=== PATIENT | female | born 1960 | race American Indian/Alaskan Native ===

== ENCOUNTER 2016-08-17 16:13 | Outpatient (CLI) | payer OTHER ==
--- NOTE | 2016-08-17 16:42 | Mammography Report ---
RIGHT DIGITAL DIAGNOSTIC MAMMOGRAM : 08/17/16 00:00:00 CLINICAL: Immediately status post aspiration/biopsy. COMPARISON:A recent [facility] mammogram. FINDINGS: The previously described circumscribed density in the outer breast has resolved. No mass, suspicious architectural distortion or suspicious calcifications. IMPRESSION: Resolution of mammographic mass status post aspiration/biopsy.Recommend routine mammographic screening. BI-RADS CATEGORY: 1 - - Negative COMMENT: Patient follow-up letters are generated by our [employer] application.
== END 2016-08-17 16:14 | disposition home or self-care (01) ==
LOC: SPVIMAG 16:13
PROVIDERS: ATTEND Surgery
DX: R92.8 Other abnormal and inconclusive findings on diagnostic imaging of breast (principal)
CPT/HCPCS: G0206-RT

== ENCOUNTER 2016-08-18 15:38 | Outpatient (CLI) | payer OTHER | END 2016-08-18 15:39 | disposition home or self-care (01) | LOC: LABHHL 15:38 | PROVIDERS: ATTEND Surgery | DX: N63 Unspecified lump in breast (principal) | CPT/HCPCS: 88305 ==

== ENCOUNTER 2019-08-20 16:34 | Inpatient (IN) | payer OTHER ==
[2019-08-20] MEDS ORDERED: ASPIRIN 325 MG TAB PO ONE (17:39)
[2019-08-20 18:08] LABS: Basophils % (Auto) 0.5 % (0.0-1.8); Eosinophils % (Auto) 0.8 % (0.0-4.3); Hematocrit 37.6 % (30.3-42.9); Hemoglobin 12.5 gm/dl (10.1-14.3); Lymphocytes # (Auto) 1.8 K/mm3 (1.2-5.4); Lymphocytes % (Auto) 37.1 % (13.4-35.0); Mean Corpuscular HGB Conc 33 % (30-34); Mean Corpuscular Volume 87 fl (79-97); Monocytes # (Auto) 0.4 K/mm3 (0.0-0.8); Platelet Count 381 K/mm3 (140-440); Red Blood Count 4.32 M/mm3 (3.65-5.03); Red Cell Distribution Width 13.6 % (13.2-15.2)
[2019-08-20 18:25] LABS: BUN/Creatinine Ratio 26; Blood Urea Nitrogen 13 mg/dL (7-17); Calcium 9.7 mg/dL (8.4-10.2); Hemolysis Index 3
--- NOTE | 2019-08-20 18:29 | XRay Report ---
CHEST 1 VIEW INDICATION: Chest Pain COMPARISON: 06/28/2014 FINDINGS: Support devices: None Heart: Normal and unchanged Lungs/Pleura: No acute pulmonary or pleural findings. IMPRESSION: 1. No acute disease. Signer Name: Balbir Kong MD Signed: 08/20/2019 6:25 PM Workstation Name: [id number]
[2019-08-20] MEDS ORDERED: KETOROLAC 30 MG/1 ML INJ IV ONE (22:15)
[2019-08-20] MEDS ORDERED: ONDANSETRON 4 MG/2 ML INJ IV ONE (22:15)
--- NOTE | 2019-08-21 00:13 | Cat Scan Report ---
CT OF THE ABDOMEN AND PELVIS WITH INTRAVENOUS CONTRAST INDICATION / CLINICAL INFORMATION: Right lower quadrant pain. TECHNIQUE: The patient received 100 cc Omnipaque [address] scans at this location are performed using CT dose reduction for ALARA by means of automated exposure control. COMPARISON: None available. FINDINGS: ABDOMEN: There is an inflamed diverticulum involving the ascending colon medially, best seen on axial image #74. There are a couple of extraluminal gas bubbles in the pericolonic fat. There is also mild soft tissue stranding in the pericolonic fat. I see no evidence of abscess or obstruction. There are a couple of tiny hepatic cysts. The gallbladder, bile ducts, pancreas, spleen and adrenal g lands are normal. There are bilateral simple renal cysts. No adenopathy is seen. The lung bases are c lear. PELVIS: The distal ureters and urinary bladder are normal. The uterus and adnexal regions are unremar kable. A normal appendix is present. There are multiple left colonic diverticula. No abnormal mass or fluid collection is seen. I do not identify a hernia. There is moderate lower lumbar spondylosis. IMPRESSION: Acute diverticulitis involving the right colon. There is evidence of contained perforatio n without abscess. Signer Name: Abundio Green MD Signed: 08/21/2019 12:09 AM Workstation Name: [employer]
--- NOTE | 2019-08-21 00:52 | Cat Scan Report ---
CT ANGIOGRAPHY OF THE CHEST WITH INTRAVENOUS CONTRAST AND MULTIPLANAR MIP RECONSTRUCTIONS INDICATION / CLINICAL INFORMATION: Chest pain and elevated d-dimer. TECHNIQUE: Axial CT images were obtained after injection of 100 cc Omnipaque 350 IV contrast using CTA protocol. 3 plane MIP / 3D reconstructions were produced. All CT scans at this location are performed using CT dose reduction for ALARA by means of automated exposure control. COMPARISON: None available. FINDINGS: There is good opacification of the pulmonary arterial system bilaterally without intraluminal filling defect to suggest acute PTE. The thoracic aorta is normal in caliber without dissection. No coronary artery calcification is seen. The tracheobronchial tree is normal. There is minimal bibasilar subsegmental atelectasis. The lungs a re otherwise clear. There is no evidence of adenopathy or effusion. There is a small simple cyst in the left mid kidney posteriorly. There are also tiny cysts in the rig ht kidney and dome of the liver. The remainder of the visualized upper abdomen is unremarkable. There is mild spondylosis without acute osseous abnormality. IMPRESSION: No evidence of acute PTE. Signer Name: Abundio Green MD Signed: 08/21/2019 12:48 AM Workstation Name: [id number]
--- NOTE | 2019-08-21 01:34 | Emergency Department Report ---
ED Abdominal Pain HPI - General Chief Complaint: Chest Pain Stated Complaint: CHEST PAIN Source: patient Mode of arrival: Ambulatory Limitations: No Limitations - History of Present Illness Initial Comments: Patient is a 59-year-old -[place] female with a history of hypertension who presents to the ED with complaint of acute onset persistent left-sided chest pain for the last 2 days. Patient describes chest pain as sharp and constant. Patient also complains of diffuse lower abdominal pain for the last 1 week with nausea and vomiting and diarrhea. Patient states that the abdominal pain radiates from the lower abdomen to the mid abdominal area, under the pain is sharp and constant. Patient denies dysuria, urinary frequency and urgency, fever, chills, cough, shortness of breath, dizziness, headache, vaginal bleeding, vaginal discharge, low back pain, traumatic injury or fall. MD Complaint: abdominal pain, other (chest wall pain; nausea, vomiting and diarrhea) -: Sudden, week(s) (1) Location: diffuse Radiation: chest Migration to: no migration Severity: severe Severity scale (0 -10): 8 Quality: cramping, sharp Consistency: intermittent Improves With: nothing Worsens With: nothing Associated Symptoms: denies other symptoms, nausea, vomiting, diarrhea, a norexia. denies: fever, chills, hematemesis, hematochezia, melena, syncope - Related Data Home Medications Medication Instructions Recorded Confirmed Last Taken amLODIPine 5 mg PO DAILY 06/12/14 03/10/16 06/25/14 10:00 5 mg Previous Rx's Medication Instructions Recorded Last Taken Type Dicyclomine [Bentyl] 20 mg PO QID PRN #20 tablet 03/10/16 Unknown Rx Allergies Allergy/AdvReac Type Severity Reaction Status Date / Time No Known Allergies Allergy Verified 08/20/19 16:36 ED Review of Systems ROS: Stated complaint: CHEST PAIN Other details as noted in HPI Constitutional: denies: chills, fever Eyes: denies: eye pain, eye discharge, vision change ENT: denies: ear pain, throat pain Respiratory: denies: cough, shortness of breath, wheezing Cardiovascular: chest pain (left chest wall pain). denies: palpitations Endocrine: no symptoms reported Gastrointestinal: abdominal pain, nausea, vomiting, diarrhea Genitourinary: denies: urgency, dysuria, discharge Musculoskeletal: denies: back pain, joint swelling, arthralgia Skin: denies: rash, lesions Neurological: denies: headache, weakness, paresthesias Psychiatric: denies: anxiety, depression Hematological/Lymphatic: denies: easy bleeding, easy bruising ED Past Medical Hx - Past Medical History Previous Medical History?: Yes Hx Hypertension: Yes (2007; [facility]) Hx Heart Attack/AMI: No Hx Congestive Heart Failure: No Hx Diabetes: No Hx Liver Disease: No Hx Renal Disease: No Hx Arthritis: Yes (left knee) Hx Seizures: No Hx Asthma: No Hx COPD: No Hx HIV: No - Surgical History Past Surgical History?: Yes Additional Surgical History: left knee replacement (jun 2014), Tubal Ligation - Social History Smoking Status: Never Smoker Substance Use Type: None - Medications Home Medications: Home Medications Medication Instructions Recorded Confirmed Last Taken Type amLODIPine 5 mg PO DAILY 06/12/14 03/10/16 06/25/14 10:00 History 5 mg Dicyclomine [Bentyl] 20 mg PO QID PRN #20 tablet 03/10/16 Unknown Rx ED Physical Exam - General Limitations: No Limitations General appearance: alert, in no apparent distress - Head Head exam: Present: atraumatic, normocephalic, normal inspection - Eye Eye exam: Present: normal appearance, PERRL, EOMI Pupils: Present: normal accommodation - ENT ENT exam: Present: normal exam, normal orophraynx, mucous membranes moist, TM's normal bilaterally, normal external ear exam - Neck Neck exam: Present: normal inspection, full ROM - Respiratory Respiratory exam: Present: normal lung sounds bilaterally, chest wall tenderness (palpable reproducible left chest wall tenderness). Absent: respiratory distress, wheezes, rales, accessory muscle use, decreased breath sounds - Cardiovascular Cardiovascular Exam: Present: regular rate, normal rhythm, normal heart sounds. Absent: systolic murmur, diastolic murmur, rubs, gallop - GI/Abdominal GI/Abdominal exam: Present: soft, tenderness (palpable diffuse lower abdominal tenderness, no guarding), normal bowel sounds. Absent: distended, guarding, rebound, hyperactive bowel sounds, hypoactive bowel sounds - Extremities Exam Extremities exam: Present: normal inspection, full ROM, normal capillary refill - Back Exam Back exam: Present: normal inspection, full ROM. Absent: tenderness, muscle spasm, paraspinal tenderness, vertebral tenderness - Neurological Exam Neurological exam: Present: alert, oriented X3, CN II-XII intact, normal gait, reflexes normal - Psychiatric Psychiatric exam: Present: normal affect, normal mood - Skin Skin exam: Present: warm, dry, intact, normal color. Absent: rash ED Course Vital Signs 08/20/19 08/20/19 08/20/19 17:37 22:43 23:13 Temperature 98.1 F Pulse Rate 76 Respiratory 18 18 18 Rate Blood Pressure 160/91 O2 Sat by Pulse 100 Oximetry ED Medical Decision Making - Lab Data Result diagrams: 08/20/19 17:43 08/20/19 17:43 - Radiology Data Radiology results: report reviewed, image reviewed Findings [facility] [address] [place] [address] XRay Report Signed Patient: JORGE TOLEDO MR#: [id number] : 1960 Acct:[id number] Age/Sex: 59 / F ADM Date: 08/20/19 Loc: ED Attending Dr: Ordering Physician: ED MD KATHY Date of Service: 08/20/19 Procedure(s): XR chest 1V ap Accession Number(s): [id number] cc: ED MD KATHY Fluoro Time In Minutes: CHEST 1 VIEW INDICATION: Chest Pain COMPARISON: 06/28/2014 FINDINGS: Support devices: None Heart: Normal and unchanged Lungs/Pleura: No acute pulmonary or pleural findings. IMPRESSION: 1. No acute disease. Signer Name: Balbir Kong MD Signed: 08/20/2019 6:25 PM Workstation Name: [id number] Transcribed By: TM Dictated By: Balbir Kong MD Electronically Authenticated By: Balbir Kong MD Signed Date/Time: 08/20/191824 DD/ 23 Findings [facility] [address] [place] [address] Cat Scan Report Signed Patient: JORGE TOLEDO MR#: [id number] : 1960 Acct:[id number] Age/Sex: 59 / F ADM Date: 08/20/19 Loc: ED Attending Dr: Ordering Physician: SILVIA VÁZQUEZ Date of Service: 08/20/19 Procedure(s): CT angio chest Accession Number(s): [id number] cc: SILVIA VÁZQUEZ CT ANGIOGRAPHY OF THE CHEST WITH INTRAVENOUS CONTRAST AND MULTIPLANAR MIP RECONSTRUCTIONS INDICATION / CLINICAL INFORMATION: Chest pain and elevated d-dimer. TECHNIQUE: Axial CT images were obtained after injection of 100 cc Omnipaque 350 IV contrast using CTA protocol. 3 plane MIP / 3D reconstructions were produced. All CT scans at this location are performed using CT dose reduction for ALARA by means of automated exposure control. COMPARISON: None available. FINDINGS: There is good opacification of the pulmonary arterial system bilaterally without intraluminal filling defect to suggest acute PTE. The thoracic aorta is normal in caliber without dissection. No coronary artery calcification is seen. The tracheobronchial tree is normal. There is minimal bibasilar subsegmental atelectasis. The lungs are otherwise clear. There is no evidence of adenopathy or effusion. There is a small simple cyst in the left mid kidney posteriorly. There are also tiny cysts in the right kidney and dome of the liver. The remainder of the visualized upper abdomen is unremarkable. There is mild spondylosis without acute osseous abnormality. IMPRESSION: No evidence of acute PTE. Signer Name: Abundio Green MD Signed: 08/21/2019 12:48 AM Workstation Name: [email or web address] [id number] Transcribed By: RT Dictated By: Abundio Green MD Electronically Authenticated By: Abundio Green MD Signed Date/Time: 08/21/1947 DD/ TD/TT: --- Findings [facility] [address] [place] [address] Cat Scan Report Signed Patient: JORGE TOLEDO MR#: [id number] : 1960 Acct:[id number] Age/Sex: 59 / F ADM Date: 08/20/19 Loc: ED Attending Dr: Ordering Physician: SILVIA VÁZQUEZ Date of Service: 08/20/19 Procedure(s): CT abdomen pelvis w con Accession Number(s): [id number] cc: SILVIA VÁZQUEZ CT OF THE ABDOMEN AND PELVIS WITH INTRAVENOUS CONTRAST INDICATION / CLINICAL INFORMATION: Right lower quadrant pain. TECHNIQUE: The patient received 100 cc Omnipaque [address] scans at this location are performed using CT dose reduction for ALARA by means of automated exposure control. COMPARISON: None available. FINDINGS: ABDOMEN: There is an inflamed diverticulum involving the ascending colon medially, best seen on axial image #74. There are a couple of extraluminal gas bubbles in the pericolonic fat. There is also mild soft tissue stranding in the pericolonic fat. I see no evidence of abscess or obstruction. There are a couple of tiny hepatic cysts. The gallbladder, bile ducts, pancreas, spleen and adrenal glands are normal. There are bilateral simple renal cysts. No adenopathy is seen. The lung bases are clear. PELVIS: The distal ureters and urinary bladder are normal. The uterus and adnexal regions are unremarkable. A normal appendix is present. There are multiple left colonic diverticula. No abnormal mass or fluid collection is seen. I do not identify a hernia. There is moderate lower lumbar spondylosis. IMPRESSION: Acute diverticulitis involving the right colon. There is evidence of contained perforation without abscess. Signer Name: Abundio Green MD Signed: 08/21/2019 12:09 AM Workstation Name: [id number] Transcribed By: RT Dictated By: Abundio Green MD Electronically Authenticated By: Abundio Green MD Signed Date/Time: 08/21/19 0009 DD/ 0005 TD/TT: - Medical Decision Making This is a 59-year-old female with a history of hypertension who presented to the ED with complaint of acute onset chest pain and lower abdominal pain with nausea and vomiting and diarrhea. In the ED, patient is alert and oriented 3 and is not in distress. The vital signs are stable. EKG shows normal sinus rhythm with a ventricular rate of [address] or T-wave abnormalities. Laboratory results were reviewed and are unremarkable except for d-dimer which was elevated to 383.81. Chest x-ray shows no acute cardiopulmonary abnormalities or pneumonitis. Chest CTA shows no evidence of PE or pneumonitis. Abdomen pelvis CT scan with contrast shows acute diverticulitis involving the right colon with the evidence of contained perforation without abscess. The patient's case was discussed with the ED attending physician Dr. Enio Cohen was advised that the surgeon lead fire protection engineer Dr. Hendrix be paged for further direction. I subsequently discussed the patient's case with Dr. Hendrix the general surgeon lead fire protection engineer advised the patient be admitted by the hospitalist, and that antibiotics be initiated on the patient be kept nothing by mouth. Dr. Hendrix shall reevaluate the patient and in the morning upon the patient's admission. I therefore discussed the patient's case with the hospitalist physician lead fire protection engineer Dr. Ramirez who admitted the patient to hospital. - Differential Diagnosis ACS; PE; Diveriticulitis; Colitis; Apppendicitis; UTI; Fibroids; AAA Critical care attestation.: If time is entered above; I have spent that time in minutes in the direct care of this critically ill patient, excluding procedure time. ED Disposition Clinical Impression: Abdominal pain in female patient, Nonspecific chest pain Diverticulitis of colon with perforation Qualifiers: Diverticulitis bleeding: without bleeding Qualified Code(s): K57.20 - Diverticulitis of large intestine with perforation and abscess without bleeding Disposition: OP ADMIT IP TO THIS HOSP Is pt being admited?: Yes Does the pt Need Aspirin: No Condition: Stable Instructions: Chest Pain (ED) Referrals: PRIMARY CARE, [Primary Care Provider] - 3-5 Days Time of Disposition: 01:56 Print Language: BURMESE
[2019-08-21] MEDS ORDERED: PIPERACIL/TAZOBACTA 4.5/NS 100 4.5 GM/100 ML VIAL IV ONE (01:35)
[2019-08-21] MEDS ORDERED: MORPHINE 4 MG/1 ML INJ IV ONE (01:35)
[2019-08-21] MEDS ORDERED: SODIUM CHLORIDE 0.9% 1000 ML 1,000 ML IV ONE (01:35)
[2019-08-21] MEDS ORDERED: ACETAMINOPHEN 325 MG TAB PO PRN (02:32)
[2019-08-21] MEDS ORDERED: hydrALAZINE 20 MG/1 ML INJ IV PRN (02:35)
[2019-08-21] MEDS ORDERED: NITROGLYCERIN 0.4 MG TAB SUBL SL PRN (02:41)
--- NOTE | 2019-08-21 02:41 | History and Physical Report ---
<COOPER DRAPER - Last Filed: 08/21/19 03:02> History of Present Illness Date of examination: 08/21/19 Date of admission: 08/21/2019 Chief complaint: Chest pain with radiation to back and abdominal pain History of present illness: 59-year-old -[place] female with history of hypertension and arthritis who presents to [facility] with complaints of right-sided abdominal pain x7 days and left-sided chest pain x3 days. Patient states that she has been experiencing intermittent right-sided abdominal pain accompanied by nausea, emesis, and diarrhea for the past week. Her abdominal pain is worse after po intake and going to bed. She states that on several occasions she was awakened with profound abdominal pain. Admits to a few episodes of emesis and diarrhea. Denies dysuria, pelvic pain, hematuria, hematemesis and hematochezia. Recently patient complains of left-sided chest pain with radiation to back for the past 3 days. She describes her pain as sharp and the pain is constant. She rates the pain 7/10. Her pain is aggravated with activity and relieved with rest and pain medication. She denies diaphoresis, shortness of breath, or headache. Patient states that she has not had any cardiac work-up in the past and is compliant with antihypertensive meds. Past History Past Medical History: arthritis, hypertension Past Surgical History: total knee replacement (left knee) Social history: lives with family, full code Family history: no significant family history Medications and Allergies Allergies Allergy/AdvReac Type Severity Reaction Status Date / Time No Known Allergies Allergy Verified 08/20/19 16:36 Home Medications Medication Instructions Recorded Confirmed Last Taken Type amLODIPine 5 mg PO DAILY 06/12/14 08/21/19 06/25/14 10:00 History 5 mg Review of Systems All systems: negative Cardiovascular: chest pain (Left-sided with radiation to back) Gastrointestinal: abdominal pain (Right upper and lower quadrant), nausea, vomiting, diarrhea Exam - Physical Exam Narrative exam: Physical exam General appearance: Present: No acute distress, alert and oriented 3, well- developed, pleasant, adult female - EENT Eyes: Present: PERRL, EOM intact ENT: hearing intact, normal dentition - Neck Neck: Present: supple, normal ROM - Respiratory Respiratory effort: Non-labored Respiratory: Clear throughout - Cardiovascular Heart rate: 76 (bpm) Rhythm: Sinus rhythm Heart Sounds: Present: S1 & S2. Absent: rub, click - Extremities Extremities: no ischemia, pulses intact, - Peripheral Assessment Peripheral Pulses: within normal limits - Abdominal General gastrointestinal: soft, RUQ & RLQ tenderness, normal bowel sounds - Integumentary Integumentary: Present: warm, dry - Musculoskeletal Musculoskeletal: Able to move all extremities -Neurological Neurological: CN II-XII intact - Psychiatric Psychiatric: Appropriate for situation ,cooperative - Constitutional Vitals: Temp Pulse Resp BP Pulse Ox 98.1 F 76 18 160/91 100 08/20/19 17:37 08/20/19 17:37 08/20/19 23:13 08/20/19 17:37 08/20/19 17:37 Results - Labs CBC & Chem 7: 08/20/19 17:43 08/20/19 17:43 Labs: Laboratory Last Values WBC 4.8 K/mm3 (4.5-11.0) 08/20/19 17:43 RBC 4.32 M/mm3 (3.65-5.03) 08/20/19 17:43 Hgb 12.5 gm/dl (10.1-14.3) 08/20/19 17:43 Hct 37.6 % (30.3-42.9) 08/20/19 17:43 MCV 87 fl (79-97) 08/20/19 17:43 MCH 29 pg (28-32) 08/20/19 17:43 MCHC 33 % (30-34) 08/20/19 17:43 RDW 13.6 % (13.2-15.2) 08/20/19 17:43 Plt Count 381 K/mm3 (140-440) 08/20/19 17:43 Lymph % (Auto) 37.1 % (13.4-35.0) H 08/20/19 17:43 [place] % (Auto) 8.0 % (0.0-7.3) H 08/20/19 17:43 Eos % (Auto) 0.8 % (0.0-4.3) 08/20/19 17:43 Baso % (Auto) 0.5 % (0.0-1.8) 08/20/19 17:43 Lymph # 1.8 K/mm3 (1.2-5.4) 08/20/19 17:43 [place] # 0.4 K/mm3 (0.0-0.8) 08/20/19 17:43 Eos # 0.0 K/mm3 (0.0-0.4) 08/20/19 17:43 Baso # 0.0 K/mm3 (0.0-0.1) 08/20/19 17:43 Seg Neutrophils % 53.6 % (40.0-70.0) 08/20/19 17:43 Seg Neutrophils # 2.6 K/mm3 (1.8-7.7) 08/20/19 17:43 D-Dimer 383.81 ng/mlDDU (0-234) H 08/20/19 22:02 Sodium 140 mmol/L (137-145) 08/20/19 17:43 Potassium 4.1 mmol/L (3.6-5.0) 08/20/19 17:43 Chloride 102.1 mmol/L (98-107) 08/20/19 17:43 Carbon Dioxide 24 mmol/L (22-30) 08/20/19 17:43 Anion Gap 18 mmol/L 08/20/19 17:43 BUN 13 mg/dL (7-17) 08/20/19 17:43 Creatinine 0.5 mg/dL (0.7-1.2) L 08/20/19 17:43 Estimated GFR > 60 ml/min 08/20/19 17:43 BUN/Creatinine Ratio 26 % 08/20/19 17:43 Glucose 87 mg/dL (65-100) 08/20/19 17:43 Calcium 9.7 mg/dL (8.4-10.2) 08/20/19 17:43 Troponin T < 0.010 ng/mL (0.00-0.029) 08/20/19 23:47 - Imaging and Cardiology Imaging and Cardiology: CXR: FINDINGS: Support devices: None Heart: Normal and unchanged Lungs/Pleura: No acute pulmonary or pleural findings. IMPRESSION: 1. No acute disease. CT Abdomen/Pelvis: FINDINGS: ABDOMEN: There is an inflamed diverticulum involving the ascending colon medially, best seen on axial image #74. There are a couple of extraluminal gas bubbles in the pericolonic fat. There is also mild soft tissue stranding in the pericolonic fat. I see no evidence of abscess or obstruction. There are a couple of tiny hepatic cysts. The gallbladder, bile ducts, pancreas, spleen and adrenal glands are normal. There are bilateral simple renal cysts. No adenopathy is seen. The lung bases are clear. PELVIS: The distal ureters and urinary bladder are normal. The uterus and adnexal regions are unremarkable. A normal appendix is present. There are multiple left colonic diverticula. No abnormal mass or fluid collection is seen. I do not identify a hernia. There is moderate lower lumbar spondylosis. IMPRESSION: Acute diverticulitis involving the right colon. There is evidence of contained perforation without abscess. CT angio Chest: FINDINGS: There is good opacification of the pulmonary arterial system bilaterally without intraluminal filling defect to suggest acute PTE. The thoracic aorta is normal in caliber without dissection. No coronary artery calcification is seen. The tracheobronchial tree is normal. There is minimal bibasilar subsegmental atelectasis. The lungs are otherwise clear. There is no evidence of adenopathy or effusion. There is a small simple cyst in the left mid kidney posteriorly. There are also tiny cysts in the right kidney and dome of the liver. The remainder of the visualized upper abdomen is unremarkable. There is mild spondylosis without acute osseous abnormality. IMPRESSION: No evidence of acute PTE. Assessment and Plan Assessment and plan: 59-year-old -[place] female with history of hypertension and arthritis who presents to [facility] with complaints of right-sided abdominal pain x7 days and left-sided chest pain x3 days. Diverticulitis -CT Abdomen/Pelvis showed: Acute diverticulitis involving the right colon. There is evidence of contained perforation without abscess. -C/O Abdominal pain -NPO -Start IV Abx -On IVF -Continue supportive care -General Surgery consulted Elevated D-dimer - At 383.81 -CT angiogram chest negative for PE Acute Chest Pain -Initiate chest pain protocol -Continuous telemetry monitoring -Continue supportive care -Pain mgmt -Troponin negative x3 -EKG unrevealing for acute ischemic abnormalities -Echo pending -Cardiology consulted HTN -Monitor BP -Resume home hypertensive meds when pt is no longer NPO and medication recon ciliation has been completed -IV hydralazine when necessary DVT PPX -On Heparin Advance Directives: No VTE prophylaxis?: Chemical Plan of care discussed with patient/family: Yes <ESTER CUEVAS Last Filed: 08/21/19 05:49> History of Present Illness Date of admission: 08/21/19 02:22 Medications and Allergies Active Meds: Active Medications Acetaminophen (Tylenol) 650 mg PO Q4H PRN PRN Reason: Pain MILD(1-3)/Fever >100.5/CORNELIUS Heparin Sodium (Porcine) (Heparin) 5,000 unit SUB-Q Q12HR [facility] Hydralazine HCl (Apresoline) 10 mg IV Q4H PRN PRN Reason: Blood Pressure Sodium Chloride (Nacl 0.9% 1000 Ml) 1,000 mls @ 75 mls/hr IV DIRECT [place] Stop: 08/21/19 12:00 Levofloxacin/Dextrose (Levaquin 500mg/100ml) 500 mg in 100 mls @ 100 mls/hr IV Q24HR [facility]; Protocol Metronidazole (Flagyl 500 Mg/100 Ml) 500 mg in 100 mls @ 100 mls/hr IV Q8HR [facility]; Protocol Morphine Sulfate (Morphine) 2 mg IV Q4H PRN PRN Reason: Pain, Moderate (4-6) Nitroglycerin (Nitrostat) 0.4 mg SL Q5M PRN PRN Reason: Chest Pain Ondansetron HCl (Zofran) 4 mg IV Q6H PRN PRN Reason: Nausea And Vomiting Sodium Chloride (Sodium Chloride Flush Syringe 10 Ml) 10 ml IV BID [place] Sodium Chloride (Sodium Chloride Flush Syringe 10 Ml) 10 ml IV PRN PRN PRN Reason: LINE FLUSH Exam - Constitutional Vitals: Temp Pulse Resp BP Pulse Ox 98.1 F 76 18 133/73 98 08/20/19 17:37 08/21/19 03:15 08/21/19 04:19 08/21/19 03:15 08/21/19 04:19 Results - Labs CBC & Chem 7: 08/20/19 17:43 08/20/19 17:43 Labs: Laboratory Last Values WBC 4.8 K/mm3 (4.5-11.0) 08/20/19 17:43 RBC 4.32 M/mm3 (3.65-5.03) 08/20/19 17:43 Hgb 12.5 gm/dl (10.1-14.3) 08/20/19 17:43 Hct 37.6 % (30.3-42.9) 08/20/19 17:43 MCV 87 fl (79-97) 08/20/19 17:43 MCH 29 pg (28-32) 08/20/19 17:43 MCHC 33 % (30-34) 08/20/19 17:43 RDW 13.6 % (13.2-15.2) 08/20/19 17:43 Plt Count 381 K/mm3 (140-440) 08/20/19 17:43 Lymph % (Auto) 37.1 % (13.4-35.0) H 08/20/19 17:43 [place] % (Auto) 8.0 % (0.0-7.3) H 08/20/19 17:43 Eos % (Auto) 0.8 % (0.0-4.3) 08/20/19 17:43 Baso % (Auto) 0.5 % (0.0-1.8) 08/20/19 17:43 Lymph # 1.8 K/mm3 (1.2-5.4) 08/20/19 17:43 [place] # 0.4 K/mm3 (0.0-0.8) 08/20/19 17:43 Eos # 0.0 K/mm3 (0.0-0.4) 08/20/19 17:43 Baso # 0.0 K/mm3 (0.0-0.1) 08/20/19 17:43 Seg Neutrophils % 53.6 % (40.0-70.0) 08/20/19 17:43 Seg Neutrophils # 2.6 K/mm3 (1.8-7.7) 08/20/19 17:43 D-Dimer 383.81 ng/mlDDU (0-234) H 08/20/19 22:02 Sodium 140 mmol/L (137-145) 08/20/19 17:43 Potassium 4.1 mmol/L (3.6-5.0) 08/20/19 17:43 Chloride 102.1 mmol/L (98-107) 08/20/19 17:43 Carbon Dioxide 24 mmol/L (22-30) 08/20/19 17:43 Anion Gap 18 mmol/L 08/20/19 17:43 BUN 13 mg/dL (7-17) 08/20/19 17:43 Creatinine 0.5 mg/dL (0.7-1.2) L 08/20/19 17:43 Estimated GFR > 60 ml/min 08/20/19 17:43 BUN/Creatinine Ratio 26 % 08/20/19 17:43 Glucose 87 mg/dL (65-100) 08/20/19 17:43 Calcium 9.7 mg/dL (8.4-10.2) 08/20/19 17:43 Troponin T < 0.010 ng/mL (0.00-0.029) 08/20/19 23:47 Assessment and Plan Assessment and plan: Patient seen and examined, agree with plan as stated above
[2019-08-21] MEDS ORDERED: SODIUM CHLORIDE 0.9% 1000 ML 1,000 ML IV SCH (02:45)
[2019-08-21] MEDS: metroNIDAZOLE/NS 500 MG/100 ML 500 MG/100 ML BAG IV SCH ×3 (06:02→22:22)
--- NOTE | 2019-08-21 09:44 | Consultation ---
History of Present Illness Consult date: 08/21/19 Reason for consult: other (perforated diverticulitis) Chief complaint: abdominal pain - History of present illness History of present illness: 59 year old female presented to ED with a history of abdominal pain. It started about 2 weeks ago but became severe over the past 2 days. It is localized mainly to the right side. She complained of some nausea. She had a CT scan that showed ascending colon diverticulitis with small amount of free air consistent with a contained perforation. No free fluid, air, or identifiable abscess collection. This morning she says that her pain is improved compared to admission. Past History Past Medical History: arthritis, hypertension Past Surgical History: total knee replacement (left knee) Social history: lives with family, full code Family history: no significant family history Medications and Allergies Allergies Allergy/AdvReac Type Severity Reaction Status Date / Time No Known Allergies Allergy Verified 08/20/19 16:36 Home Medications Medication Instructions Recorded Confirmed Last Taken Type amLODIPine 5 mg PO DAILY 06/12/14 08/21/19 06/25/14 10:00 History 5 mg Active Meds: Active Medications Acetaminophen (Tylenol) 650 mg PO Q4H PRN PRN Reason: Pain MILD(1-3)/Fever >100.5/CORNELIUS Heparin Sodium (Porcine) (Heparin) 5,000 unit SUB-Q Q12HR [facility] Hydralazine HCl (Apresoline) 10 mg IV Q4H PRN PRN Reason: Blood Pressure Sodium Chloride (Nacl 0.9% 1000 Ml) 1,000 mls @ 75 mls/hr IV DIRECT [facility] Stop: 08/21/19 12:00 Last Admin: 08/21/19 06:02 Dose: 75 mls/hr Documented by: Levofloxacin/Dextrose (Levaquin 500mg/100ml) 500 mg in 100 mls @ 100 mls/hr IV Q24HR [facility]; Protocol Metronidazole (Flagyl 500 Mg/100 Ml) 500 mg in 100 mls @ 100 mls/hr IV Q8HR [place]; Protocol Last Admin: 08/21/19 06:02 Dose: 100 mls/hr Documented by: Morphine Sulfate (Morphine) 2 mg IV Q4H PRN PRN Reason: Pain, Moderate (4-6) Nitroglycerin (Nitrostat) 0.4 mg SL Q5M PRN PRN Reason: Chest Pain Ondansetron HCl (Zofran) 4 mg IV Q6H PRN PRN Reason: Nausea And Vomiting Sodium Chloride (Sodium Chloride Flush Syringe 10 Ml) 10 ml IV BID [place] Sodium Chloride (Sodium Chloride Flush Syringe 10 Ml) 10 ml IV PRN PRN PRN Reason: LINE FLUSH Review of Systems - Constitutional no fever, no chills - Respiratory no shortness of breath - Gastrointestinal abdominal pain, nausea, no vomiting, no melena Exam Vital Signs Temp Pulse Resp BP Pulse Ox 98.1 F 76 18 160/91 100 08/20/19 17:37 08/20/19 17:37 08/20/19 17:37 08/20/19 17:37 08/20/19 17:37 - General physical appearance Positive: well developed, well nourished, no distress - Respiratory Positive: normal expansion, normal respiratory effort - Abdomen Abdomen: Present: soft. Absent: tender, distended, guarding, rigid - Neurologic Neurologic: alert and oriented to time, place and person Results - Labs 08/20/19 17:43 08/20/19 17:43 Abnormal lab results 08/20/19 08/20/19 08/20/19 Range/Units 17:43 17:43 22:02 Lymph % (Auto) 37.1 H (13.4-35.0) % [place] % (Auto) 8.0 H (0.0-7.3) % D-Dimer 383.81 H (0-234) ng/mlDDU Creatinine 0.5 L (0.7-1.2) mg/dL Diabetes panel 08/20/19 Range/Units 17:43 Sodium 140 (137-145) mmol/L Potassium 4.1 (3.6-5.0) mmol/L Chloride 102.1 (98-107) mmol/L Carbon Dioxide 24 (22-30) mmol/L BUN 13 (7-17) mg/dL Creatinine 0.5 L (0.7-1.2) mg/dL Glucose 87 (65-100) mg/dL Calcium 9.7 (8.4-10.2) mg/dL Calcium panel 08/20/19 Range/Units 17:43 Calcium 9.7 (8.4-10.2) mg/dL Pituitary panel 08/20/19 Range/Units 17:43 Sodium 140 (137-145) mmol/L Potassium 4.1 (3.6-5.0) mmol/L Chloride 102.1 (98-107) mmol/L Carbon Dioxide 24 (22-30) mmol/L BUN 13 (7-17) mg/dL Creatinine 0.5 L (0.7-1.2) mg/dL Glucose 87 (65-100) mg/dL Calcium 9.7 (8.4-10.2) mg/dL Adrenal panel 08/20/19 Range/Units 17:43 Sodium 140 (137-145) mmol/L Potassium 4.1 (3.6-5.0) mmol/L Chloride 102.1 (98-107) mmol/L Carbon Dioxide 24 (22-30) mmol/L BUN 13 (7-17) mg/dL Creatinine 0.5 L (0.7-1.2) mg/dL Glucose 87 (65-100) mg/dL Calcium 9.7 (8.4-10.2) mg/dL - Imaging CT scan - abdomen: report reviewed, image reviewed CT scan - pelvis: report reviewed, image reviewed Assessment and Plan 59 year old female with contained small right sided colonic diverticular perforation. afebrile, stable with no signs of large free perforation or fluid collection to drain at this time. continue antibiotics and keep NPO for next 24 hours. If remains stable over night and no signs of clinical decline, would start trial of clear liquids tomorrow. No surgical intervention planned at this time.
[2019-08-21] MEDS: HEPARIN 5,000 UNIT/1 ML VIAL SUB-Q SCH ×2 (10:00→22:22)
--- NOTE | 2019-08-21 11:47 | Consultation ---
History of Present Illness Consult date: 08/21/19 Requesting physician: COOPER DRAPER Consult reason: chest pain History of present illness: The pt is a 59 year old female with a past medical history of HTN, HLP, diverticulosis. She is previously unknown to our practice. She presented with c/o abdominal pain and constipation for approx 2 weeks prior to arrival and chest pain since yesterday. She describes her abdominal pain as a right lower quadrant stabbing and aching pain which is aggravated by food intake. She states that yesterday, she noted the development of chest pain and thus she decided to seek medical attention. She describes her chest pain as a left-sided intermittent stabbing pain. She denies any palpitations, SOB, n/v, diaphoresis, dizziness or syncope. She denies any known prior cardiac issues. CT scan showed ascending colon diverticulitis with small amount of free air consistent with a contained perforation, no free fluid, air, or identifiable abscess collection. Past History Past Medical History: arthritis, hypertension Past Surgical History: total knee replacement (left knee) Social history: lives with family, full code Family history: no significant family history Medications and Allergies Allergies Allergy/AdvReac Type Severity Reaction Status Date / Time No Known Allergies Allergy Verified 08/20/19 16:36 Home Medications Medication Instructions Recorded Confirmed Last Taken Type amLODIPine 5 mg PO DAILY 06/12/14 08/21/19 06/25/14 10:00 History 5 mg Active Meds: Active Medications Acetaminophen (Tylenol) 650 mg PO Q4H PRN PRN Reason: Pain MILD(1-3)/Fever >100.5/CORNELIUS Heparin Sodium (Porcine) (Heparin) 5,000 unit SUB-Q Q12HR [facility] Last Admin: 08/21/19 10:00 Dose: 5,000 unit Documented by: Hydralazine HCl (Apresoline) 10 mg IV Q4H PRN PRN Reason: Blood Pressure Sodium Chloride (Nacl 0.9% 1000 Ml) 1,000 mls @ 75 mls/hr IV DIRECT [place] Stop: 08/21/19 12:00 Last Admin: 08/21/19 06:02 Dose: 75 mls/hr Documented by: Levofloxacin/Dextrose (Levaquin 500mg/100ml) 500 mg in 100 mls @ 100 mls/hr IV Q24HR [facility]; Protocol Last Admin: 08/21/19 10:00 Dose: 100 mls/hr Documented by: Metronidazole (Flagyl 500 Mg/100 Ml) 500 mg in 100 mls @ 100 mls/hr IV Q8HR [facility]; Protocol Last Admin: 08/21/19 06:02 Dose: 100 mls/hr Documented by: Morphine Sulfate (Morphine) 2 mg IV Q4H PRN PRN Reason: Pain, Moderate (4-6) Nitroglycerin (Nitrostat) 0.4 mg SL Q5M PRN PRN Reason: Chest Pain Ondansetron HCl (Zofran) 4 mg IV Q6H PRN PRN Reason: Nausea And Vomiting Sodium Chloride (Sodium Chloride Flush Syringe 10 Ml) 10 ml IV BID [facility] Last Admin: 08/21/19 10:00 Dose: 10 ml Documented by: Sodium Chloride (Sodium Chloride Flush Syringe 10 Ml) 10 ml IV PRN PRN PRN Reason: LINE FLUSH Review of Systems Constitutional: no weight loss, no weight gain, no fever, no chills, no sweats Ears, nose, mouth and throat: no ear pain, no nose pain, no sinus pressure, no sinus pain Cardiovascular: chest pain, no orthopnea, no palpitations, no rapid/irregular heart beat, no edema, no syncope, no lightheadedness, no shortness of breath, no dyspnea on exertion, no leg edema Respiratory: no cough, no shortness of breath, no dyspnea on exertion, no congestion, no wheezing, no pain on inspiration Gastrointestinal: abdominal pain, nausea, constipation, no vomiting, no diarrhea Genitourinary Female: no pelvic pain, no flank pain, no dysuria, no urinary frequency, no urgency Musculoskeletal: no neck stiffness, no neck pain, no shooting arm pain, no arm numbness/tingling, no low back pain, no shooting leg pain Integumentary: no rash, no pruritis, no redness, no sores, no wounds Neurological: no head injury, no paralysis, no weakness, no parathesias, no numbness, no tingling, no seizures, no syncope Psychiatric: no anxiety Endocrine: no cold intolerance, no heat intolerance Hematologic/Lymphatic: no easy bruising, no easy bleeding Allergic/Immunologic: no urticaria, no wheezing Physical Examination Vital Signs Temp Pulse Resp BP Pulse Ox 98.1 F 76 18 160/91 100 01/13/20 17:37 08/20/19 17:37 08/20/19 17:37 08/20/19 17:37 08/20/19 17:37 General appearance: no acute distress HEENT: Positive: PERRL, Normocephaly, Mucus Membranes Moist Neck: Positive: neck supple, trachea midline Cardiac: Positive: Reg Rate and Rhythm, S1/S2, Systolic Murmur Lungs: Positive: Decreased Breath Sounds Neuro: Positive: Grossly Intact Abdomen: Positive: Tender Skin: Negative: Rash Musculoskeletal: No Pain Extremities: Absent: edema Results 08/20/19 17:43 08/20/19 17:43 CBC 08/20/19 Range/Units 17:43 WBC 4.8 (4.5-11.0) K/mm3 RBC 4.32 (3.65-5.03) M/mm3 Hgb 12.5 (10.1-14.3) gm/dl Hct 37.6 (30.3-42.9) % Plt Count 381 (140-440) K/mm3 Lymph # 1.8 (1.2-5.4) K/mm3 [place] # 0.4 (0.0-0.8) K/mm3 Eos # 0.0 (0.0-0.4) K/mm3 Baso # 0.0 (0.0-0.1) K/mm3 Comprehensive Metabolic Panel 08/20/19 Range/Units 17:43 Sodium 140 (137-145) mmol/L Potassium 4.1 (3.6-5.0) mmol/L Chloride 102.1 (98-107) mmol/L Carbon Dioxide 24 (22-30) mmol/L BUN 13 (7-17) mg/dL Creatinine 0.5 L (0.7-1.2) mg/dL Glucose 87 (65-100) mg/dL Calcium 9.7 (8.4-10.2) mg/dL - Imaging and Cardiology Echo: pending EKG: report reviewed, image reviewed EKG interpretations - Telemetry EKG Rhythm: Sinus Rhythm - EKG Sinus rhythms and dysrhythmias: sinus rhythm Assessment and Plan DDimer elevated - chest CTA negative for PE. AMI ruled out. Per general surgery - If remains stable over night and no signs of clinical decline, would start trial of clear liquids tomorrow. No surgical intervention planned at this time. Await echo. Can consider stress test once medically stabilized - could be done as OP. The patient has been seen in conjunction with Dr. Natasha Cee who agrees with the assessment and plan of care. - Patient Problems (1) Chest pain Current Visit: Yes Status: Acute (2) Abdominal pain Current Visit: Yes Status: Acute (3) Diverticulitis of colon with perforation Current Visit: Yes Status: Acute Qualifiers: Diverticulitis bleeding: without bleeding Qualified Code(s): K57.20 - Diverticulitis of large intestine with perforation and abscess without bleeding (4) Hypertension Current Visit: Yes Status: Chronic (5) Hyperlipidemia Current Visit: Yes Status: Chronic
[2019-08-21] MEDS: MORPHINE 2 MG/1 ML INJ IV PRN (17:13)
[2019-08-21] MEDS: ONDANSETRON 4 MG/2 ML INJ IV PRN (17:13)
[2019-08-22] MEDS: metroNIDAZOLE/NS 500 MG/100 ML 500 MG/100 ML BAG IV SCH ×3 (05:21→21:38)
[2019-08-22 07:58] LABS: Basophils % (Auto) 0.8 % (0.0-1.8); Eosinophils % (Auto) 0.2 % (0.0-4.3); Hematocrit 36.9 % (30.3-42.9); Hemoglobin 12.2 gm/dl (10.1-14.3); Lymphocytes # (Auto) 0.9 K/mm3 (1.2-5.4); Lymphocytes % (Auto) 23.8 % (13.4-35.0); Mean Corpuscular HGB Conc 33 % (30-34); Mean Corpuscular Volume 87 fl (79-97); Monocytes # (Auto) 0.2 K/mm3 (0.0-0.8); Monocytes % (Auto) 5.6 % (0.0-7.3); Platelet Count 377 K/mm3 (140-440); Red Blood Count 4.25 M/mm3 (3.65-5.03); Red Cell Distribution Width 13.4 % (13.2-15.2)
[2019-08-22 08:13] LABS: BUN/Creatinine Ratio 30; Blood Urea Nitrogen 15 mg/dL (7-17); Calcium 9.1 mg/dL (8.4-10.2); Hemolysis Index 13
[2019-08-22] MEDS: HEPARIN 5,000 UNIT/1 ML VIAL SUB-Q SCH ×2 (09:15→21:40)
--- NOTE | 2019-08-22 11:05 | Progress Note ---
Assessment and Plan DDimer elevated - chest CTA negative for PE. AMI ruled out. Chest pain currently resolved. Echo reviewed - EF 55-60%, impaired relaxation. Currently stable cardiac status. Await general surgery recs. Can consider stress test once medically stabilized - could be done as OP. The patient has been seen in conjunction with Dr. TAE Cee who agrees with the assessment and plan of care. - Patient Problems (1) Chest pain Current Visit: Yes Status: Resolved (2) Abdominal pain Current Visit: Yes Status: Acute (3) Diverticulitis of colon with perforation Current Visit: Yes Status: Acute Qualifiers: Diverticulitis bleeding: without bleeding Qualified Code(s): K57.20 - Diverticulitis of large intestine with perforation and abscess without bleeding (4) Hypertension Current Visit: Yes Status: Chronic (5) Hyperlipidemia Current Visit: Yes Status: Chronic Subjective Date of service: 08/22/19 Principal diagnosis: cp; abd pain Interval history: pt resting in bed, no current chest pain, some abd pain overnight. in SR on tele. Objective Last Vital Signs Temp 98.2 F 08/22/19 05:33 Pulse 67 08/22/19 05:33 Resp 16 08/22/19 05:33 BP 114/57 08/22/19 05:33 Pulse Ox 96 08/22/19 05:33 - Physical Examination General: No Apparent Distress HEENT: Positive: PERRL, Normocephaly, Mucus Membranes Moist Neck: Positive: neck supple, trachea midline Cardiac: Positive: Reg Rate and Rhythm, S1/S2 Lungs: Positive: Decreased Breath Sounds Neuro: Positive: Grossly Intact Abdomen: Positive: Tender Skin: Negative: Rash Musculoskeletal: No Pain Extremities: Absent: edema - Labs and Meds CBC 08/22/19 Range/Units 07:18 WBC 3.9 L (4.5-11.0) K/mm3 RBC 4.25 (3.65-5.03) M/mm3 Hgb 12.2 (10.1-14.3) gm/dl Hct 36.9 (30.3-42.9) % Plt Count 377 (140-440) K/mm3 Lymph # 0.9 L (1.2-5.4) K/mm3 [place] # 0.2 (0.0-0.8) K/mm3 Eos # 0.0 (0.0-0.4) K/mm3 Baso # 0.0 (0.0-0.1) K/mm3 Comprehensive Metabolic Panel 08/22/19 Range/Units 07:18 Sodium 142 (137-145) mmol/L Potassium 4.2 (3.6-5.0) mmol/L Chloride 103.6 (98-107) mmol/L Carbon Dioxide 20 L (22-30) mmol/L BUN 15 (7-17) mg/dL Creatinine 0.5 L (0.7-1.2) mg/dL Glucose 65 (65-100) mg/dL Calcium 9.1 (8.4-10.2) mg/dL - Imaging and Cardiology EKG: report reviewed, image reviewed Echo: report reviewed - Telemetry EKG Rhythm: Sinus Rhythm - EKG Sinus rhythms and dysrhythmias: sinus rhythm
--- NOTE | 2019-08-22 11:19 | Progress Note ---
Assessment and Plan perforated diverticulitis clinically contained as she has continued to have normal labs and stable vital signs in conjunction with improvement in abdominal pain. will start trial of clear liquids, if she does well will advance starting sincere orrow and continue to observe. Subjective Date of service: 08/22/19 Patient Reports: Positive: no new complaints (no acute events overnight. pt denies significant abdominal pain but says her back is bothering her. ), pain is less. Negative: vomiting Objective Vital Signs - 12hr 08/22/19 05:33 Temperature 98.2 F Pulse Rate 67 Respiratory 16 Rate Blood Pressure 114/57 O2 Sat by Pulse 96 Oximetry - General physical appearance well developed, well nourished, no distress, no pain - Respiratory normal expansion, clear to auscultation - Abdomen soft, not tender, not rebound, not guarding, not rigid - Labs 08/22/19 07:18 08/22/19 07:18 Diabetes panel 08/22/19 Range/Units 07:18 Sodium 142 (137-145) mmol/L Potassium 4.2 (3.6-5.0) mmol/L Chloride 103.6 (98-107) mmol/L Carbon Dioxide 20 L (22-30) mmol/L BUN 15 (7-17) mg/dL Creatinine 0.5 L (0.7-1.2) mg/dL Glucose 65 (65-100) mg/dL Calcium 9.1 (8.4-10.2) mg/dL Calcium panel 08/22/19 Range/Units 07:18 Calcium 9.1 (8.4-10.2) mg/dL Pituitary panel 08/22/19 Range/Units 07:18 Sodium 142 (137-145) mmol/L Potassium 4.2 (3.6-5.0) mmol/L Chloride 103.6 (98-107) mmol/L Carbon Dioxide 20 L (22-30) mmol/L BUN 15 (7-17) mg/dL Creatinine 0.5 L (0.7-1.2) mg/dL Glucose 65 (65-100) mg/dL Calcium 9.1 (8.4-10.2) mg/dL Adrenal panel 08/22/19 Range/Units 07:18 Sodium 142 (137-145) mmol/L Potassium 4.2 (3.6-5.0) mmol/L Chloride 103.6 (98-107) mmol/L Carbon Dioxide 20 L (22-30) mmol/L BUN 15 (7-17) mg/dL Creatinine 0.5 L (0.7-1.2) mg/dL Glucose 65 (65-100) mg/dL Calcium 9.1 (8.4-10.2) mg/dL
[2019-08-22] MEDS: MORPHINE 2 MG/1 ML INJ IV PRN ×2 (14:57→20:06)
--- NOTE | 2019-08-22 15:26 | Progress Note ---
Assessment and Plan Assessment and plan: 59-year-old woman who presents to the hospital with abdominal pain which radiated to her back and her chest. Acute diverticulitis with contained perforation/sepsis -IV antibiotics, advance diet as tolerated per general surgery. Elevated d-dimer, CTA chest was negative for PE Chest pain Cardiology input appreciated, was likely radiation of abdominal pain to the chest, outpatient stress test per cardiology. DVT prophylaxis; heparin subcu History Interval history: Review of systems Constitutional: No fevers, no malaise, no joint pains CVS: No chest pain, no orthopnea, no pedal edema GI: No abdominal pain, no diarrhea, no vomiting, no constipation Respiratory: , no wheezing, no coughing Hospitalist Physical - Physical exam Narrative exam: General.: Appears well, no distress, nontoxic HEENT: Moist mucous membranes, extraocular muscles intact, no lymphadenopathy Neck: supple Cardiac: S1-S2 heard Lungs: clear to auscultation bilaterally Abdomen: soft , nontender, nondistended, bowel sounds positive Extremities: no edema clubbing or cyanosis Skin: no rash or lesions Neurologic: no gross focal deficits Psych: calm, and cooperative - Constitutional Vitals: Temp Pulse Resp BP Pulse Ox 98.0 F 69 16 114/62 99 08/22/19 12:23 08/22/19 12:23 08/22/19 12:23 08/22/19 12:23 08/22/19 12:23 General appearance: Present: no acute distress Results - Labs CBC & Chem 7: 08/22/19 07:18 08/22/19 07:18 Labs: Laboratory Last Values WBC 3.9 K/mm3 (4.5-11.0) L 08/22/19 07:18 RBC 4.25 M/mm3 (3.65-5.03) 08/22/19 07:18 Hgb 12.2 gm/dl (10.1-14.3) 08/22/19 07:18 Hct 36.9 % (30.3-42.9) 08/22/19 07:18 MCV 87 fl (79-97) 08/22/19 07:18 MCH 29 pg (28-32) 08/22/19 07:18 MCHC 33 % (30-34) 08/22/19 07:18 RDW 13.4 % (13.2-15.2) 08/22/19 07:18 Plt Count 377 K/mm3 (140-440) 08/22/19 07:18 Lymph % (Auto) 23.8 % (13.4-35.0) 08/22/19 07:18 [place] % (Auto) 5.6 % (0.0-7.3) 08/22/19 07:18 Eos % (Auto) 0.2 % (0.0-4.3) 08/22/19 07:18 Baso % (Auto) 0.8 % (0.0-1.8) 08/22/19 07:18 Lymph # 0.9 K/mm3 (1.2-5.4) L 08/22/19 07:18 [place] # 0.2 K/mm3 (0.0-0.8) 08/22/19 07:18 Eos # 0.0 K/mm3 (0.0-0.4) 08/22/19 07:18 Baso # 0.0 K/mm3 (0.0-0.1) 08/22/19 07:18 Seg Neutrophils % 69.6 % (40.0-70.0) 08/22/19 07:18 Seg Neutrophils # 2.7 K/mm3 (1.8-7.7) 08/22/19 07:18 D-Dimer 383.81 ng/mlDDU (0-234) H 08/20/19 22:02 Sodium 142 mmol/L (137-145) 08/22/19 07:18 Potassium 4.2 mmol/L (3.6-5.0) 08/22/19 07:18 Chloride 103.6 mmol/L (98-107) 08/22/19 07:18 Carbon Dioxide 20 mmol/L (22-30) L 08/22/19 07:18 Anion Gap 23 mmol/L 08/22/19 07:18 BUN 15 mg/dL (7-17) 08/22/19 07:18 Creatinine 0.5 mg/dL (0.7-1.2) L 08/22/19 07:18 Estimated GFR > 60 ml/min 08/22/19 07:18 BUN/Creatinine Ratio 30 % 08/22/19 07:18 Glucose 65 mg/dL (65-100) 08/22/19 07:18 Calcium 9.1 mg/dL (8.4-10.2) 08/22/19 07:18 Troponin T < 0.010 ng/mL (0.00-0.029) 08/20/19 23:47 Active Medications - Current Medications Current Medications: Generic Name Dose Route Start Last Admin Trade Name Freq PRN Reason Stop Dose Admin Acetaminophen 650 mg 08/21/19 02:32 Tylenol PO Q4H PRN Pain MILD(1-3)/Fever >100.5/CORNELIUS Heparin Sodium (Porcine) 5,000 unit 08/21/19 10:00 08/22/19 09:15 Heparin SUB-Q 5,000 unit Q12HR KOREY Administration Hydralazine HCl 10 mg 08/21/19 02:35 Apresoline IV Q4H PRN Blood Pressure Levofloxacin/Dextrose 500 mg in 100 mls @ 100 mls/hr 08/21/19 10:00 08/22/19 09:15 Levaquin 500mg/100ml IV 100 mls/hr Q24HR KOREY Administration Protocol Metronidazole 500 mg in 100 mls @ 100 mls/hr 08/21/19 06:00 08/22/19 14:28 Flagyl 500 Mg/100 Ml IV 100 mls/hr Q8HR KOREY Administration Protocol Sodium Chloride 1,000 mls @ 75 mls/hr 08/22/19 16:00 Nacl 0.45% 1000 Ml IV DIRECT KOREY Morphine Sulfate 2 mg 08/21/19 02:32 08/22/19 14:57 Morphine IV 2 mg Q4H PRN Administration Pain, Moderate (4-6) Nitroglycerin 0.4 mg 08/21/19 02:41 Nitrostat SL Q5M PRN Chest Pain Ondansetron HCl 4 mg 08/21/19 02:32 08/21/19 17:13 Zofran IV 4 mg Q6H PRN Administration Nausea And Vomiting Sodium Chloride 10 ml 08/21/19 10:00 08/21/19 22:22 Sodium Chloride Flush Syringe 10 Ml IV 10 ml BID KOREY Administration Sodium Chloride 10 ml 08/21/19 02:32 Sodium Chloride Flush Syringe 10 Ml IV PRN PRN LINE FLUSH
[2019-08-22] MEDS: SODIUM CHLORIDE 0.45% 1000 ML 1,000 ML IV SCH (17:08)
[2019-08-22] MEDS: ONDANSETRON 4 MG/2 ML INJ IV PRN (20:06)
[2019-08-23] MEDS: metroNIDAZOLE/NS 500 MG/100 ML 500 MG/100 ML BAG IV SCH ×2 (05:04→15:07)
[2019-08-23] MEDS: SODIUM CHLORIDE 0.45% 1000 ML 1,000 ML IV SCH (05:05)
--- NOTE | 2019-08-23 09:56 | Discharge Summary ---
Providers - Providers Date of Admission: 08/21/19 02:22 Attending physician: ZAIN KIM MD 08/21/19 02:04 Consult to Physician [CONS] Stat Comment: SILVIA Carrion spoke with Dr. Hendrix @ [phone] Consulting Provider: BLAINE HENDRIX Physician Instructions: Keep NPO, start Abx, Will see in AM, Hosp to admit Reason For Exam: Diverticulitis with perforation 08/21/19 02:59 Consult to Physician [CONS] Routine Comment: Consulting Provider: AUDI LIANG Physician Instructions: Reason For Exam: chest pain Primary care physician: W[employer]OWS [employer] ENGINEER Hospitalization Condition: Stable Hospital course: 59-year-old woman who presents to the hospital with abdominal pain which radiated to her back and her chest. Acute diverticulitis with contained perforation/sepsis -sp IV antibiotics, diet was advanced, improved. She has been discharged on oral antibiotics Elevated d-dimer, CTA chest was negative for PE Chest pain, was due to diverticulitis, as per patient abdominal pain radiated to her chest Cardiology input appreciated, was likely radiation of abdominal pain to the chest, stress test was negative, cardiology input appreciated Hypertension; BP meds were initially held because patient was dehydrated and relatively normotensive. She has improved with IV hydration. Advised to resume home BP meds upon discharge. Type 2 diabetes, A1c 11 Patient was started on oral meds , she should follow-up with her doctor for continued management. Advised that she needs podiatry and ophthalmology follow- up as well. DVT prophylaxis; heparin subcu Preventative health counseling performed for 17 minutes Disposition: - TO HOME OR SELFCARE Time spent for discharge: 35 minutes Core Measure Documentation - Palliative Care Palliative Care/ Comfort Measures: Not Applicable - Core Measures Any of the following diagnoses?: none Exam - Constitutional Vitals: Temp Pulse Resp BP Pulse Ox 98.0 F 67 18 137/69 98 08/23/19 06:50 08/23/19 06:50 08/23/19 06:50 08/23/19 06:50 08/23/19 06:50 General appearance: Present: no acute distress, well-nourished - EENT Eyes: Present: PERRL ENT: hearing intact, clear oral mucosa - Neck Neck: Present: supple, normal ROM - Respiratory Respiratory effort: normal Respiratory: bilateral: CTA - Cardiovascular Heart Sounds: Present: S1 & S2. Absent: rub, click - Extremities Extremities: pulses symmetrical, No edema Peripheral Pulses: within normal limits - Abdominal General gastrointestinal: Present: soft, non-tender, non-distended, normal bowel sounds Female genitourinary: Present: normal - Integumentary Integumentary: Present: clear, warm, dry - Musculoskeletal Musculoskeletal: gait normal, strength equal bilaterally - Psychiatric Psychiatric: appropriate mood/affect, intact judgment & insight - Neurologic Neurologic: CNII-XII intact, moves all extremities Plan Additional Instructions: You have diabetes. You have been put on medication. Please see your primary care doctor within a week for further management. He also need podiatry and ophthalmology visits Follow up with: PRIMARY CARE, [Primary Care Provider] - 3-5 Days BLAINE HENDRIX MD [Staff Physician] - 7 Days Forms: Work/School Release Form Prescriptions: Ciprofloxacin HCl [Ciprofloxacin TAB] 500 mg PO Q12HR #14 tab metroNIDAZOLE [Flagyl] 500 mg PO Q8HR #21 tablet Sitagliptin Phos/Metformin HCl [Janumet 50-500 mg Tablet] 1 each PO BID #60 tablet oxyCODONE /ACETAMINOPHEN [Percocet 5/325] 1 tab PO Q6HR PRN #20 tablet PRN Reason: Pain
[2019-08-23] MEDS: HEPARIN 5,000 UNIT/1 ML VIAL SUB-Q SCH (10:34)
--- NOTE | 2019-08-23 10:52 | Progress Note ---
Assessment and Plan clinically contained perforated diverticulitis. stable and afebrile. will advance diet to full liquids, and can advance as tolerated after that. If does well, and is cleared to be discharged well in am from general surgery perspective. She will need to have a colonoscopy in the next 6-8 weeks to examine the entire colon. Subjective Date of service: 08/23/19 Patient Reports: Positive: no new complaints, pain is less, tolerating liquids well (no acute events overnight, pt says she was having some abdominal pain yesterday initially when she started clear liquids but that has since subsided. ) Objective Vital Signs - 12hr 08/22/19 08/23/19 23:06 06:50 Temperature 98.0 F 98.0 F Pulse Rate 65 67 Respiratory 18 18 Rate Blood Pressure 126/68 137/69 O2 Sat by Pulse 96 98 Oximetry - General physical appearance well developed, no distress, no pain - Respiratory normal expansion, normal respiratory effort - Abdomen soft, not tender - Labs 08/22/19 07:18 08/22/19 07:18
--- NOTE | 2019-08-23 10:55 | Progress Note ---
Assessment and Plan Pt denies any abdominal pain and appears to be tolerating diet. She experienced several bouts of left-sided chest pain overnight. Will plan for lexiscan MPI stress test in AM. NPO after MN. The patient has been seen in conjunction with Dr. Natasha Cee who agrees with the assessment and plan of care. - Patient Problems (1) Chest pain Current Visit: Yes Status: Acute (2) Abdominal pain Current Visit: Yes Status: Resolved (3) Diverticulitis of colon with perforation Current Visit: Yes Status: Acute Qualifiers: Diverticulitis bleeding: without bleeding Qualified Code(s): K57.20 - Diverticulitis of large intestine with perforation and abscess without bleeding (4) Hypertension Current Visit: Yes Status: Chronic (5) Hyperlipidemia Current Visit: Yes Status: Chronic Subjective Date of service: 08/23/19 Principal diagnosis: cp; abd pain Interval history: pt resting in bed, denies any abdominal pain and appears to be tolerating diet. she experienced several bouts of left-sided chest pain overnight. in SR/SB on telemetry. Objective Last Vital Signs Temp 98.0 F 08/23/19 06:50 Pulse 67 08/23/19 06:50 Resp 18 08/23/19 06:50 BP 137/69 08/23/19 06:50 Pulse Ox 98 08/23/19 06:50 - Physical Examination General: No Apparent Distress HEENT: Positive: PERRL, Normocephaly, Mucus Membranes Moist Neck: Positive: neck supple, trachea midline Cardiac: Positive: Reg Rate and Rhythm, S1/S2 Lungs: Positive: Decreased Breath Sounds Neuro: Positive: Grossly Intact Abdomen: Positive: Tender Skin: Negative: Rash Musculoskeletal: No Pain Extremities: Absent: edema - Imaging and Cardiology EKG: report reviewed, image reviewed Echo: report reviewed (EF 55-60%, impaired relaxation. ) - Telemetry EKG Rhythm: Sinus Rhythm - EKG Sinus rhythms and dysrhythmias: sinus rhythm
--- NOTE | 2019-08-23 13:08 | Progress Note ---
Assessment and Plan Assessment and plan: 59-year-old woman who presents to the hospital with abdominal pain which radiated to her back and her chest. Acute diverticulitis with contained perforation/sepsis -IV antibiotics, advance diet as tolerated per general surgery. Elevated d-dimer, CTA chest was negative for PE Chest pain Cardiology input appreciated, was likely radiation of abdominal pain to the chest, for stress test in a.m. DVT prophylaxis; heparin subcu History Interval history: Review of systems Constitutional: No fevers, no malaise, no joint pains CVS: No chest pain, no orthopnea, no pedal edema GI: No abdominal pain, no diarrhea, no vomiting, no constipation Respiratory: , no wheezing, no coughing Hospitalist Physical - Physical exam Narrative exam: General.: Appears well, no distress, nontoxic HEENT: Moist mucous membranes, extraocular muscles intact, no lymphadenopathy Neck: supple Cardiac: S1-S2 heard Lungs: clear to auscultation bilaterally Abdomen: soft , nontender, nondistended, bowel sounds positive Extremities: no edema clubbing or cyanosis Skin: no rash or lesions Neurologic: no gross focal deficits Psych: calm, and cooperative - Constitutional Vitals: Temp Pulse Resp BP Pulse Ox 98.0 F 67 18 137/69 98 08/23/19 06:50 08/23/19 06:50 08/23/19 06:50 08/23/19 06:50 08/23/19 06:50 General appearance: Present: no acute distress, well-nourished Results - Labs CBC & Chem 7: 08/22/19 07:18 08/22/19 07:18 Labs: Laboratory Last Values WBC 3.9 K/mm3 (4.5-11.0) L 08/22/19 07:18 RBC 4.25 M/mm3 (3.65-5.03) 08/22/19 07:18 Hgb 12.2 gm/dl (10.1-14.3) 08/22/19 07:18 Hct 36.9 % (30.3-42.9) 08/22/19 07:18 MCV 87 fl (79-97) 08/22/19 07:18 MCH 29 pg (28-32) 08/22/19 07:18 MCHC 33 % (30-34) 08/22/19 07:18 RDW 13.4 % (13.2-15.2) 08/22/19 07:18 Plt Count 377 K/mm3 (140-440) 08/22/19 07:18 Lymph % (Auto) 23.8 % (13.4-35.0) 08/22/19 07:18 [place] % (Auto) 5.6 % (0.0-7.3) 08/22/19 07:18 Eos % (Auto) 0.2 % (0.0-4.3) 08/22/19 07:18 Baso % (Auto) 0.8 % (0.0-1.8) 08/22/19 07:18 Lymph # 0.9 K/mm3 (1.2-5.4) L 08/22/19 07:18 [place] # 0.2 K/mm3 (0.0-0.8) 08/22/19 07:18 Eos # 0.0 K/mm3 (0.0-0.4) 08/22/19 07:18 Baso # 0.0 K/mm3 (0.0-0.1) 08/22/19 07:18 Seg Neutrophils % 69.6 % (40.0-70.0) 08/22/19 07:18 Seg Neutrophils # 2.7 K/mm3 (1.8-7.7) 08/22/19 07:18 D-Dimer 383.81 ng/mlDDU (0-234) H 08/20/19 22:02 Sodium 142 mmol/L (137-145) 08/22/19 07:18 Potassium 4.2 mmol/L (3.6-5.0) 08/22/19 07:18 Chloride 103.6 mmol/L (98-107) 08/22/19 07:18 Carbon Dioxide 20 mmol/L (22-30) L 08/22/19 07:18 Anion Gap 23 mmol/L 08/22/19 07:18 BUN 15 mg/dL (7-17) 08/22/19 07:18 Creatinine 0.5 mg/dL (0.7-1.2) L 08/22/19 07:18 Estimated GFR > 60 ml/min 08/22/19 07:18 BUN/Creatinine Ratio 30 % 08/22/19 07:18 Glucose 65 mg/dL (65-100) 08/22/19 07:18 Calcium 9.1 mg/dL (8.4-10.2) 08/22/19 07:18 Troponin T < 0.010 ng/mL (0.00-0.029) 08/20/19 23:47 Active Medications - Current Medications Current Medications: Generic Name Dose Route Start Last Admin Trade Name Freq PRN Reason Stop Dose Admin Acetaminophen 650 mg 08/21/19 02:32 Tylenol PO Q4H PRN Pain MILD(1-3)/Fever >100.5/CORNELIUS Heparin Sodium (Porcine) 5,000 unit 08/21/19 10:00 08/23/19 10:34 Heparin SUB-Q 5,000 unit Q12HR KOREY Administration Hydralazine HCl 10 mg 08/21/19 02:35 Apresoline IV Q4H PRN Blood Pressure Levofloxacin/Dextrose 500 mg in 100 mls @ 100 mls/hr 08/21/19 10:00 08/23/19 10:33 Levaquin 500mg/100ml IV 100 mls/hr Q24HR KOREY Administration Protocol Metronidazole 500 mg in 100 mls @ 100 mls/hr 08/21/19 06:00 08/23/19 05:04 Flagyl 500 Mg/100 Ml IV 100 mls/hr Q8HR KOREY Administration Protocol Sodium Chloride 1,000 mls @ 75 mls/hr 08/22/19 16:00 08/23/19 05:05 Nacl 0.45% 1000 Ml IV 75 mls/hr DIRECT KOREY Administration Morphine Sulfate 2 mg 08/21/19 02:32 08/22/19 20:06 Morphine IV 2 mg Q4H PRN Administration Pain, Moderate (4-6) Nitroglycerin 0.4 mg 08/21/19 02:41 Nitrostat SL Q5M PRN Chest Pain Ondansetron HCl 4 mg 08/21/19 02:32 08/22/19 20:06 Zofran IV 4 mg Q6H PRN Administration Nausea And Vomiting Sodium Chloride 10 ml 08/21/19 10:00 08/23/19 10:34 Sodium Chloride Flush Syringe 10 Ml IV 10 ml BID KOREY Administration Sodium Chloride 10 ml 08/21/19 02:32 Sodium Chloride Flush Syringe 10 Ml IV PRN PRN LINE FLUSH
[2019-08-23] MEDS ORDERED: KETOROLAC 30 MG/1 ML INJ IV PRN (20:33)
[2019-08-23] MEDS ORDERED: MORPHINE 2 MG/1 ML INJ IV PRN (21:38)
[2019-08-24] MEDS: metroNIDAZOLE/NS 500 MG/100 ML 500 MG/100 ML BAG IV SCH ×3 (01:15→14:37)
[2019-08-24] MEDS: SODIUM CHLORIDE 0.45% 1000 ML 1,000 ML IV SCH (01:16)
[2019-08-24] MEDS: HEPARIN 5,000 UNIT/1 ML VIAL SUB-Q SCH ×2 (01:21→11:46)
[2019-08-24] MEDS: ONDANSETRON 4 MG/2 ML INJ IV PRN (05:57)
[2019-08-24] MEDS ORDERED: REGADENOSON 0.4 MG/5 ML INJ IV ONE ×2 (08:05→08:37)
--- NOTE | 2019-08-24 10:44 | Progress Note ---
Assessment and Plan S/p lexiscan MPI stress test today which was negative. Currently stable cardiac status. Pt may discharge from cardiology standpoint. Recommend pt follow up in our office with Dr. Natasha Cee within 1-2 weeks ([phone]). The patient has been seen in conjunction with Dr. Natasha Cee who agrees with the assessment and plan of care. - Patient Problems (1) Chest pain Current Visit: Yes Status: Resolved (2) Abdominal pain Current Visit: Yes Status: Resolved (3) Diverticulitis of colon with perforation Current Visit: Yes Status: Acute Qualifiers: Diverticulitis bleeding: without bleeding Qualified Code(s): K57.20 - Diverticulitis of large intestine with perforation and abscess without bleeding (4) Hypertension Current Visit: Yes Status: Chronic (5) Hyperlipidemia Current Visit: Yes Status: Chronic Subjective Date of service: 08/24/19 Principal diagnosis: cp; abd pain Interval history: pt for stress test Objective Last Vital Signs Temp 97.3 F L 08/24/19 04:51 Pulse 66 08/24/19 04:51 Resp 20 08/24/19 04:51 BP 108/53 08/24/19 04:51 Pulse Ox 96 08/24/19 04:51 - Physical Examination General: No Apparent Distress HEENT: Positive: PERRL, Normocephaly, Mucus Membranes Moist Neck: Positive: neck supple, trachea midline Cardiac: Positive: Reg Rate and Rhythm, S1/S2 Lungs: Positive: Decreased Breath Sounds Neuro: Positive: Grossly Intact Abdomen: Negative: Tender Skin: Negative: Rash Musculoskeletal: No Pain Extremities: Absent: edema - Imaging and Cardiology EKG: report reviewed, image reviewed Echo: report reviewed (EF 55-60%, impaired relaxation. ) - EKG Sinus rhythms and dysrhythmias: sinus rhythm
[2019-08-24 12:04] VITALS: BP 151/76
--- NOTE | 2019-08-24 16:21 | Treadmill Report ---
NUCLEAR STRESS TEST Ordering physician is hospitalist service. PROTOCOL: The patient was brought to the stress lab in postabsorptive state, given 10 mCi of technetium 99m at rest. The patient underwent rest imaging. The patient underwent Lexiscan stress test. At peak stress, the patient was given 26 mCi of technetium 99m. Shortly thereafter, the patient underwent stress imaging. Raw imaging reveals some GI artifact and some breast attenuation. Grossly no evidence of significant fixed or reversible perfusion defects suggestive of prior infarction or ischemia. Gated wall motion reveals normal systolic thickening, calculated ejection fraction of 64%. No TID. CONCLUSIONS: 1. Technically difficult study due to breast attenuation, but grossly no evidence of significant fixed or reversible perfusion defects suggestive of prior infarction or ischemia. 2. Gated wall motion reveals normal systolic performance without evidence of transient ischemic dilatation or stress-induced segmental wall motion abnormalities. JOB# [id number] BARBARA/MAIA
== END 2019-08-24 18:34 | disposition home or self-care (01) | DRG 872 ==
LOC: ED 16:34 → 3A 08-21 02:22
PROVIDERS: ADMIT Internal Medicine; ATTEND Internal Medicine
DX: A41.9 Sepsis, unspecified organism (principal); K57.20 Diverticulitis of large intestine with perforation and abscess without bleeding; I10 Essential (primary) hypertension; M17.12 Unilateral primary osteoarthritis, left knee; Z96.652 Presence of left artificial knee joint; R07.89 Other chest pain; E78.5 Hyperlipidemia, unspecified; E11.9 Type 2 diabetes mellitus without complications; Z98.51 Tubal ligation status
CPT/HCPCS: 36415; 71045; 71275; 74177; 78452; 80048; 84484; 85025; 85379; 93005; 93010; 93017; 93306; G0378; A9502; J1644; J1885; J1956; J2270; J2405; J2543; J2785; J7030; Q9967